=== PATIENT | male | born 1985 | race African-American/Black ===

== ENCOUNTER 2020-07-28 11:27 | Inpatient (IN) | payer OTHER ==
[~2020-07-28] VITALS: Ht 188 cm; Wt 124.8 kg
[2020-07-28] MEDS: CEFUROXIME 1.5 GM in SODIUM CHLORIDE 0.9% 50 ML IVPB SCH ×2 (04:30→16:30)
[2020-07-28] MEDS: VANCOMYCIN 1,700 MG in SODIUM CHLORIDE 0.9% 250 ML IVPB SCH ×2 (04:30→16:30)
[~2020-07-28 11:27] MED LIST: ALBUMIN HUMAN 5% 500 ML IV PRN; CEFUROXIME 1.5 GM in SODIUM CHLORIDE 0.9% 50 ML IVPB PRN; DEXMEDETOMIDINE 200 MCG in SODIUM CHLORIDE 0.9% 48 ML IV PRN; EPINEPHRINE 5 MG in SODIUM CHLORIDE 0.9% 245 ML IV PRN; MANNITOL PMX 20% 500 ML IVPB PRN; PHENYLEPHRINE 50 MG in SODIUM CHLORIDE 0.9% 245 ML IV PRN; POTASSIUM CHLORIDE 80 MEQ, SODIUM BICARBONATE 8.4% 10 MEQ, MAGNESIUM SULFATE 0.5 GM, LI... IV PRN; REGULAR INSULIN 100 UNITS in SODIUM CHLORIDE 0.9% 99 ML IV PRN; VANCOMYCIN 1,700 MG in SODIUM CHLORIDE 0.9% 250 ML IV PRN
--- NOTE | 2020-07-28 11:31 | NUR ---
PT CAREFLIGHT FROM [facility] FOR 5/10 NON-RADIATING DULL CHEST PAIN IN STERUM. PT GIVEN 324 OF ASPRIN AND X3 TABS NITRO. PT REPORTED MILD REFLIEF FROM NITRO. NO SIGNIFICANT MEDICAL HX. PT ATTACHED TO ALL MONITORS. VSS. NADN. APPEARS NORMAL SINUS ON MONITOR.
--- NOTE | 2020-07-28 11:53 | NUR ---
DR. MAC TO BEDSIDE FOR EVALUATION.
[2020-07-28] MEDS ORDERED: ONDANSETRON 2MG/ML, 2ML IVPush ONE (12:00)
[2020-07-28] MEDS ORDERED: SODIUM CHLORIDE FLUSH 10ML SYR IVF ONE (12:00)
[2020-07-28] MEDS ORDERED: ONDANSETRON 2MG/ML, 2ML ONE (12:04)
[2020-07-28] MEDS ORDERED: MORPHINE SULFATE 4 MG/ML, 1ML ONE ×2 (12:05→14:57)
[2020-07-28] MEDS: MORPHINE SULFATE 4 MG/ML, 1ML IVPush PRN ×2 (12:10→14:59)
[2020-07-28 12:24] LABS: BASOPHILS % (AUTO) 0 % (0-1); EOSINOPHILS % (AUTO) 0 % (1-7); LYMPHOCYTES % (AUTO) 10 % (22-44); MEAN CORPUSCULAR HEMOGLOBIN 28.6 pg (27.5-34.5); MEAN CORPUSCULAR HGB CONC 32.7 g/dL (33.2-36.2); MEAN PLATELET VOLUME 8.7 fL (7.4-10.4); MONOCYTES % (AUTO) 4 % (2-9); NEUTROPHILS % (AUTO) 85 % (42-75); PLATELET COUNT 174 x10^3/uL (130-400); RED BLOOD COUNT 4.93 x10^6/uL (4.38-5.82); RED CELL DISTRIBUTION WIDTH 14.5 % (9.4-14.8)
[2020-07-28] MEDS ORDERED: PLEASE ENTER ALLERGIES MC SCH (12:30)
[2020-07-28 12:35] LABS: ALANINE AMINOTRANSFERASE 29 U/L (12-78); ALBUMIN 4.3 g/dL (3.4-5.0); ANION GAP 3 mmol/L (5-15); CALCIUM 9.4 mg/dL (8.5-10.1); CHLORIDE 109 mmol/L (98-107)
[2020-07-28 12:40] LABS: ALKALINE PHOSPHATASE 63 U/L (45-117); BILIRUBIN,TOTAL 0.5 mg/dL (0.2-1.0); TOTAL PROTEIN 7.9 g/dL (6.4-8.2); TROPONIN I < 0.015 ng/mL (0.000-0.045)
[2020-07-28 12:41] LABS: MD SCAN
--- NOTE | 2020-07-28 13:04 | NUR ---
pt sitting up in bed. vss, nadn. guards at bedside.
[2020-07-28] MEDS ORDERED: SODIUM CHLORIDE 0.9%, 500ML IVBOLUS ONE ×2 (13:30→14:30)
--- NOTE | 2020-07-28 13:31 | NUR ---
PT TO CT FOR CTA.
--- NOTE | 2020-07-28 14:01 | NUR ---
PT UP TO BATHROOM WITH STEADY GAIT AND WITH GUARD.
[2020-07-28] MEDS ORDERED: OMNIPAQUE 350 MG/ML, 100ML BOTTLE ONE (14:20)
--- NOTE | 2020-07-28 14:23 | NUR ---
Lunch RN: MD Stevens back to bedside to update pt on POC. Pt back to CT. Meds ordered from pharmacy.
--- NOTE | 2020-07-28 14:52 | NUR ---
PT MOVED TO TRAUMA 3 FOR CLOSER OBSERVATION. PREVIOUS RN SENT FOR MEDS FROM PHARMACY, AWAITING ARRIVAL OF THESE MEDS. NAD NOTED AT THIS TIME.
--- NOTE | 2020-07-28 14:54 | NUR ---
report given to trauma rn Salena. pt transfered to trauma 3.
--- NOTE | 2020-07-28 15:03 | NUR ---
FOLLOW UP CALL MADE TO PHARMACY FOR MEDS.
[2020-07-28] MEDS: ESMOLOL/NS PMX 250 ML IV PRN ×2 (15:25→22:24)
--- NOTE | 2020-07-28 15:26 | NUR ---
COVID SWAB COMPLETED. PT REPORTS HAVING COVID 19 IN MAY. NO CURRENT SYMPTOMS. ESMOLOL STARTED WITH CCU RN ASSISTANCE.
[2020-07-28] MEDS ORDERED: MIDAZOLAM 10MG/2 ML ONE (15:54)
[2020-07-28] MEDS ORDERED: FENTANYL PF 250 MCG/5ML ONE ×5 (15:54→21:03)
--- NOTE | 2020-07-28 16:20 | NUR ---
PT SITTING UP IN BED, REPORTS FEELING SLIGHTLY BETTER, NO CHANGE IN CP LOCATION OR RADIATION. NO WOB NOTED. SIDE RAILS UP, CALL LIGHT IN REACH. TITRATION OF MEDICATIONS UNDERWAY.
--- NOTE | 2020-07-28 16:35 | NUR ---
OR TEAM AT BEDSIDE FOR REPORT. ANESTHESIOLOGIST AT BEDSIDE FOR DISCUSSION WITH PT.
--- NOTE | 2020-07-28 16:38 | NUR ---
PT TRANSPORTED WITH IVF STILL INFUSING.
[2020-07-28 16:40] LABS: BASOPHILS % (AUTO) 0 % (0-1); EOSINOPHILS % (AUTO) 0 % (1-7); LYMPHOCYTES % (AUTO) 12 % (22-44); MEAN CORPUSCULAR HEMOGLOBIN 28.2 pg (27.5-34.5); MEAN CORPUSCULAR HGB CONC 31.9 g/dL (33.2-36.2); MEAN PLATELET VOLUME 8.7 fL (7.4-10.4); MONOCYTES % (AUTO) 7 % (2-9); NEUTROPHILS % (AUTO) 80 % (42-75); PLATELET COUNT 166 x10^3/uL (130-400); RED BLOOD COUNT 4.69 x10^6/uL (4.38-5.82); RED CELL DISTRIBUTION WIDTH 14.4 % (9.4-14.8)
[2020-07-28 16:46] LABS: MD NO
[2020-07-28 16:52] LABS: ALBUMIN 3.5 g/dL (3.4-5.0); ANION GAP 6 mmol/L (5-15); CALCIUM 8.9 mg/dL (8.5-10.1); CHLORIDE 111 mmol/L (98-107)
[2020-07-28 16:55] LABS: ALANINE AMINOTRANSFERASE 25 U/L (12-78); ALKALINE PHOSPHATASE 55 U/L (45-117); BILIRUBIN,TOTAL 0.5 mg/dL (0.2-1.0); CREATININE 1.41 mg/dL (0.7-1.3); TOTAL PROTEIN 6.6 g/dL (6.4-8.2)
[2020-07-28] MEDS ORDERED: PROMETHAZINE 25 MG SUPP PR PRN (17:00)
[2020-07-28] MEDS ORDERED: SODIUM BICARB 8.4%, 50ML SYRINGE IV PRN (17:00)
[2020-07-28] MEDS ORDERED: ALBUMIN HUMAN 5% 500 ML IV PRN (17:00)
[2020-07-28] MEDS ORDERED: DOBUTAMINE 250 MG in SODIUM CHLORIDE 0.9% 230 ML IV PRN (17:00)
[2020-07-28] MEDS ORDERED: INSULIN REGULAR 100 UNITS/ML, 3ML VIAL IVPush PRN (17:00)
[2020-07-28] MEDS ORDERED: DEXTROSE 50%, 50ML SYRINGE IVPush PRN (17:00)
[2020-07-28] MEDS ORDERED: VASOPRESSIN 20 UNIT in SODIUM CHLORIDE 0.9% 99 ML IV PRN (17:00)
[2020-07-28] MEDS ORDERED: LACTATED RINGERS 500 ML IV PRN (17:00)
[2020-07-28] MEDS ORDERED: GLUCAGON 1 MG IM PRN (17:00)
[2020-07-28] MEDS ORDERED: REGULAR INSULIN 100 UNITS in SODIUM CHLORIDE 0.9% 99 ML IV PRN (17:00)
[2020-07-28] MEDS ORDERED: OXYcodone IR 5MG TABLET PO PRN (17:00)
[2020-07-28] MEDS ORDERED: DEXMEDETOMIDINE 400 MCG in SODIUM CHLORIDE 0.9% 96 ML IV PRN (17:00)
[2020-07-28] MEDS ORDERED: HYDROmorphone 1 MG/ML, 1ML INJ IV PRN (17:00)
[2020-07-28] MEDS ORDERED: MIDAZOLAM 1 MG/ML, 2ML IV PRN (17:00)
[2020-07-28] MEDS ORDERED: PHENYLEPHRINE 50 MG in SODIUM CHLORIDE 0.9% 245 ML IV PRN (17:00)
[2020-07-28] MEDS: INSULIN LISPRO 100 UNITS/ML, PEN SQ-INSULIN SCH ×2 (17:00→22:30)
[2020-07-28] MEDS ORDERED: CALCIUM CHLORIDE 13.6 MEQ in SODIUM CHLORIDE 0.9% 100 ML IVPB PRN (17:00)
[2020-07-28] MEDS ORDERED: DEXTROSE 4 GM TAB.CHEW PO PRN (17:00)
[2020-07-28] MEDS ORDERED: PROCHLORPERAZINE 5 MG/ML, 2ML IVPush PRN (17:00)
[2020-07-28] MEDS ORDERED: SODIUM CHLORIDE 0.9% 1,000 ML IV SCH (17:00)
[2020-07-28] MEDS ORDERED: EPINEPHRINE 5 MG in SODIUM CHLORIDE 0.9% 245 ML IV PRN (17:00)
[2020-07-28] MEDS ORDERED: NITROGLYCERIN/D5W PMX 250 ML IV PRN (17:00)
[2020-07-28] MEDS: ACETAMINOPHEN 500 MG TABLET PO SCH ×2 (17:00→23:00)
[2020-07-28] MEDS ORDERED: FENTANYL PF 100 MCG/2ML IV PRN (17:00)
[2020-07-28] MEDS ORDERED: ONDANSETRON 2MG/ML, 2ML IVPush PRN (17:00)
[2020-07-28 17:01] LABS: INTERNATIONAL NORMALIZED RATIO 1.06 (0.93-1.1); PROTHROMBIN TIME 11.3 Seconds (9.6-11.5)
[2020-07-28] MEDS ORDERED: ROCURONIUM 10MG/ML,5ML ONE ×4 (18:03→18:27)
[2020-07-28] MEDS ORDERED: PROPOFOL 10 MG/ML, 20ML ONE (18:21)
[2020-07-28] MEDS ORDERED: LIDOCAINE-MPF 2% ,5ML ONE (18:21)
[2020-07-28] MEDS ORDERED: PROTAMINE SULFATE 10 MG/ML, 25ML ONE ×2 (18:21)
[2020-07-28] MEDS ORDERED: AMINOCAPROIC ACID 250 MG/ML, 20ML ONE ×2 (18:21)
[2020-07-28] MEDS ORDERED: CALCIUM CHLORIDE 10%, 10ML SYR ONE ×2 (20:46→20:57)
[2020-07-28] MEDS ORDERED: SODIUM BICARB 8.4%, 50ML SYRINGE ONE ×2 (20:58→21:37)
[2020-07-28] MEDS ORDERED: DIPHENHYDRAMINE 25 MG CAPSULE PO PRN (21:00)
[2020-07-28] MEDS: SENNA/DOCUSATE TABLET PO SCH (21:00)
[2020-07-28] MEDS: DOCUSATE 100 MG CAPSULE PO SCH (21:00)
[2020-07-28] MEDS ORDERED: HEPARIN 1,000 UNITS/ML, 30ML ONE (21:38)
[2020-07-28] MEDS ORDERED: SODIUM BICARBONATE 1 MEQ/ML, 50ML VIAL ONE (21:38)
[2020-07-28] MEDS ORDERED: LIDOCAINE 2%, 20ML ONE (21:38)
[2020-07-28] MEDS ORDERED: methylPREDNISolone SOD SUCC 125 MG/2 ML ONE (21:38)
[2020-07-28] MEDS ORDERED: ALBUMIN HUMAN 25% 50 ML ONE (21:38)
[2020-07-28 21:52] LABS: GLUCOSE BY BLOOD GAS ANALYZER 182 mg/dL (70-110); HEMOGLOBIN BY BLOOD GAS ANALYZ 10.2 g/dL (14.0-18.0); POTASSIUM BY BLOOD GAS ANALYZR 3.5 mmol/L (3.6-5.5)
[2020-07-28] MEDS: KSCALE TO 4.5 IV SCH (22:30)
[2020-07-28] MEDS ORDERED: POTASSIUM CHLORIDE PMX 100 ML IV ONE (22:30)
[2020-07-28 22:35] LABS: INTERNATIONAL NORMALIZED RATIO 1.3 (0.93-1.1); PROTHROMBIN TIME 13.8 Seconds (9.6-11.5)
[2020-07-28] MEDS: MAGNESIUM SULFATE 1 GM in SODIUM CHLORIDE 0.9% 100 ML IVPB SCH (22:42)
[2020-07-28] MEDS: SODIUM CHLORIDE FLUSH 10ML SYR IVF SCH (22:48)
[2020-07-28] MEDS: MUPIROCIN OINT 2%, 22GM NAS SCH (23:19)
[2020-07-29 00:36] LABS: MICROSCOPIC AUTO
[2020-07-29] MEDS: ACETAMINOPHEN 500 MG TABLET PO SCH ×4 (04:06→22:36)
[2020-07-29] MEDS: CEFUROXIME 1.5 GM in SODIUM CHLORIDE 0.9% 50 ML IVPB SCH ×2 (04:29→17:31)
[2020-07-29] MEDS: INSULIN LISPRO 100 UNITS/ML, PEN SQ-INSULIN SCH ×5 (04:29→20:26)
[2020-07-29] MEDS: KSCALE TO 4.5 IV SCH ×2 (04:30→10:30)
[2020-07-29 04:35] LABS: BASOPHILS % (AUTO) 0 % (0-1); EOSINOPHILS % (AUTO) 0 % (1-7); LYMPHOCYTES % (AUTO) 4 % (22-44); MEAN CORPUSCULAR HEMOGLOBIN 28.6 pg (27.5-34.5); MEAN CORPUSCULAR HGB CONC 33.1 g/dL (33.2-36.2); MEAN PLATELET VOLUME 8.3 fL (7.4-10.4); MONOCYTES % (AUTO) 7 % (2-9); NEUTROPHILS % (AUTO) 89 % (42-75); PLATELET COUNT 130 x10^3/uL (130-400); RED BLOOD COUNT 3.68 x10^6/uL (4.38-5.82); RED CELL DISTRIBUTION WIDTH 14.2 % (9.4-14.8)
[2020-07-29 04:36] LABS: MD NO
[2020-07-29 04:39] LABS: ANION GAP 6 mmol/L (5-15); CALCIUM 8.6 mg/dL (8.5-10.1); CHLORIDE 113 mmol/L (98-107); CREATININE 1.53 mg/dL (0.7-1.3)
[2020-07-29] MEDS: VANCOMYCIN 1,700 MG in SODIUM CHLORIDE 0.9% 250 ML IVPB SCH ×2 (04:44→18:27)
[2020-07-29] MEDS: OXYcodone IR 5MG TABLET PO PRN ×4 (05:27→20:26)
[2020-07-29] MEDS ORDERED: CEFUROXIME 1.5 GM in SODIUM CHLORIDE 0.9% 50 ML IVPB ONE (07:30)
[2020-07-29] MEDS ORDERED: VANCOMYCIN 0 MG in SODIUM CHLORIDE 0.9% 250 ML IVPB ONE (07:30)
[2020-07-29] MEDS: POLYETHYLENE GLYCOL 17 GM PACKET PO SCH (08:18)
[2020-07-29] MEDS: DOCUSATE 100 MG CAPSULE PO SCH ×2 (08:18→20:26)
[2020-07-29] MEDS: CHLORHEXIDINE 15 ML UDC MM SCH ×2 (08:18→20:24)
[2020-07-29] MEDS: OMEPRAZOLE 20 MG CAPSULE.DR PO SCH (08:19)
[2020-07-29] MEDS: SENNA/DOCUSATE TABLET PO SCH ×2 (08:19→20:26)
[2020-07-29] MEDS: FUROSEMIDE 40 MG/4 ML IV SCH (08:19)
[2020-07-29] MEDS: ASPIRIN 81 MG TABLET EC PO SCH (08:19)
[2020-07-29] MEDS: SODIUM CHLORIDE FLUSH 10ML SYR IVF SCH ×2 (08:19→20:25)
[2020-07-29] MEDS: METOPROLOL TARTRATE 25 MG TAB PO SCH ×2 (08:26→17:05)
[2020-07-29] MEDS: MUPIROCIN OINT 2%, 22GM NAS SCH ×2 (08:27→20:24)
[2020-07-29] MEDS: AMLODIPINE 5 MG TABLET PO SCH (13:03)
[2020-07-29 14:27] VITALS: BP 129/88
[2020-07-29 16:50] VITALS: BP 124/67
[2020-07-29 17:33] VITALS: BP 139/82
[2020-07-29 20:17] VITALS: BP 127/70
[2020-07-29] MEDS ORDERED: MAGNESIUM SULFATE/D5W 100 ML ONE (22:34)
[2020-07-29] MEDS: MAGNESIUM SULFATE 1 GM in SODIUM CHLORIDE 0.9% 100 ML IVPB SCH (23:03)
[2020-07-30 03:17] VITALS: BP 135/78
[2020-07-30 03:37] LABS: BASOPHILS % (AUTO) 0 % (0-1); EOSINOPHILS % (AUTO) 0 % (1-7); LYMPHOCYTES % (AUTO) 12 % (22-44); MEAN CORPUSCULAR HEMOGLOBIN 28.7 pg (27.5-34.5); MEAN CORPUSCULAR HGB CONC 33.1 g/dL (33.2-36.2); MEAN PLATELET VOLUME 8.5 fL (7.4-10.4); MONOCYTES % (AUTO) 10 % (2-9); NEUTROPHILS % (AUTO) 78 % (42-75); PLATELET COUNT 122 x10^3/uL (130-400); RED BLOOD COUNT 3.68 x10^6/uL (4.38-5.82); RED CELL DISTRIBUTION WIDTH 14.4 % (9.4-14.8)
[2020-07-30 03:38] LABS: MD NO
[2020-07-30 03:40] LABS: ANION GAP 3 mmol/L (5-15); CALCIUM 8.4 mg/dL (8.5-10.1); CHLORIDE 106 mmol/L (98-107); CREATININE 1.28 mg/dL (0.7-1.3)
[2020-07-30] MEDS: ACETAMINOPHEN 500 MG TABLET PO SCH ×4 (04:44→22:31)
[2020-07-30] MEDS: METOPROLOL TARTRATE 25 MG TAB PO SCH ×2 (06:12→17:57)
[2020-07-30 06:46] VITALS: BP 138/89
[2020-07-30] MEDS: INSULIN LISPRO 100 UNITS/ML, PEN SQ-INSULIN SCH ×4 (07:00→21:00)
[2020-07-30] MEDS: SODIUM CHLORIDE FLUSH 10ML SYR IVF SCH ×2 (09:00→21:49)
[2020-07-30 09:20] VITALS: BP 159/89
[2020-07-30] MEDS: CHLORHEXIDINE 15 ML UDC MM SCH ×2 (09:20→21:48)
[2020-07-30] MEDS: FUROSEMIDE 40 MG/4 ML IV SCH ×2 (09:21→21:49)
[2020-07-30] MEDS: MUPIROCIN OINT 2%, 22GM NAS SCH ×2 (09:21→21:49)
[2020-07-30] MEDS: SENNA/DOCUSATE TABLET PO SCH ×2 (09:21→21:48)
[2020-07-30] MEDS: OMEPRAZOLE 20 MG CAPSULE.DR PO SCH (09:22)
[2020-07-30] MEDS: DOCUSATE 100 MG CAPSULE PO SCH ×2 (09:22→21:49)
[2020-07-30] MEDS: AMLODIPINE 5 MG TABLET PO SCH (09:22)
[2020-07-30] MEDS: ASPIRIN 81 MG TABLET EC PO SCH (09:22)
[2020-07-30] MEDS: POLYETHYLENE GLYCOL 17 GM PACKET PO SCH (09:22)
[2020-07-30 13:13] VITALS: BP 126/84
[2020-07-30] MEDS ORDERED: BISACODYL 10 MG SUPP PR PRN (17:00)
[2020-07-30] MEDS ORDERED: METOPROLOL TARTRATE 25 MG TAB PO SCH (18:00)
[2020-07-30 19:05] VITALS: BP 144/82
[2020-07-30] MEDS: MAGNESIUM SULFATE 1 GM in SODIUM CHLORIDE 0.9% 100 ML IVPB SCH (23:10)
[2020-07-31 01:12] VITALS: BP 133/78
[2020-07-31] MEDS: ACETAMINOPHEN 500 MG TABLET PO SCH ×4 (03:40→21:05)
[2020-07-31 03:44] LABS: BASOPHILS % (AUTO) 1 % (0-1); EOSINOPHILS % (AUTO) 0 % (1-7); LYMPHOCYTES % (AUTO) 9 % (22-44); MEAN CORPUSCULAR HEMOGLOBIN 28.1 pg (27.5-34.5); MEAN CORPUSCULAR HGB CONC 32.9 g/dL (33.2-36.2); MEAN PLATELET VOLUME 8.7 fL (7.4-10.4); MONOCYTES % (AUTO) 10 % (2-9); NEUTROPHILS % (AUTO) 80 % (42-75); PLATELET COUNT 115 x10^3/uL (130-400); RED BLOOD COUNT 3.93 x10^6/uL (4.38-5.82); RED CELL DISTRIBUTION WIDTH 14.5 % (9.4-14.8)
[2020-07-31 03:46] LABS: MD NO
[2020-07-31 03:51] LABS: ANION GAP 4 mmol/L (5-15); CALCIUM 8.6 mg/dL (8.5-10.1); CHLORIDE 104 mmol/L (98-107); CREATININE 1.37 mg/dL (0.7-1.3)
[2020-07-31] MEDS: METOPROLOL TARTRATE 25 MG TAB PO SCH ×2 (05:56→17:39)
[2020-07-31] MEDS: INSULIN LISPRO 100 UNITS/ML, PEN SQ-INSULIN SCH (07:00)
[2020-07-31 07:23] VITALS: BP 155/109
[2020-07-31] MEDS: AMLODIPINE 5 MG TABLET PO SCH (08:30)
[2020-07-31] MEDS: OMEPRAZOLE 20 MG CAPSULE.DR PO SCH (08:31)
[2020-07-31] MEDS: POLYETHYLENE GLYCOL 17 GM PACKET PO SCH (08:31)
[2020-07-31] MEDS: FUROSEMIDE 40 MG/4 ML IV SCH ×2 (08:31→21:06)
[2020-07-31] MEDS: DOCUSATE 100 MG CAPSULE PO SCH ×2 (08:31→21:04)
[2020-07-31] MEDS: ASPIRIN 81 MG TABLET EC PO SCH (08:31)
[2020-07-31] MEDS: SENNA/DOCUSATE TABLET PO SCH ×2 (08:31→21:04)
[2020-07-31] MEDS: MUPIROCIN OINT 2%, 22GM NAS SCH ×2 (08:32→21:00)
[2020-07-31] MEDS: SODIUM CHLORIDE FLUSH 10ML SYR IVF SCH ×2 (08:33→21:00)
[2020-07-31] MEDS: SPIRONOLACTONE 50 MG TABLET PO SCH ×2 (11:36→21:04)
[2020-07-31 15:13] VITALS: BP 142/96
[2020-07-31 20:06] VITALS: BP 145/86
[2020-07-31 21:07] VITALS: BP 128/78
[2020-08-01 00:57] VITALS: BP 137/84
[2020-08-01 05:00] LABS: BASOPHILS % (AUTO) 1 % (0-1); EOSINOPHILS % (AUTO) 0 % (1-7); LYMPHOCYTES % (AUTO) 11 % (22-44); MEAN CORPUSCULAR HEMOGLOBIN 28.5 pg (27.5-34.5); MEAN CORPUSCULAR HGB CONC 33.5 g/dL (33.2-36.2); MONOCYTES % (AUTO) 11 % (2-9); NEUTROPHILS % (AUTO) 78 % (42-75); PLATELET COUNT 146 x10^3/uL (130-400); RED BLOOD COUNT 4.07 x10^6/uL (4.38-5.82)
[2020-08-01 05:06] LABS: ANION GAP 5 mmol/L (5-15); CALCIUM 8.9 mg/dL (8.5-10.1); CHLORIDE 103 mmol/L (98-107); CREATININE 1.28 mg/dL (0.7-1.3)
[2020-08-01] MEDS: METOPROLOL TARTRATE 25 MG TAB PO SCH ×2 (05:10→17:26)
[2020-08-01] MEDS: ACETAMINOPHEN 500 MG TABLET PO SCH ×4 (05:10→21:14)
[2020-08-01 05:28] LABS: MD NO
[2020-08-01] MEDS: OMEPRAZOLE 20 MG CAPSULE.DR PO SCH (06:32)
[2020-08-01 08:05] VITALS: BP 125/71
[2020-08-01] MEDS: METOLAZONE 2.5 MG TABLET PO SCH (08:08)
[2020-08-01] MEDS: FUROSEMIDE 40 MG/4 ML IV SCH ×2 (08:08→08:09)
[2020-08-01] MEDS: SODIUM CHLORIDE FLUSH 10ML SYR IVF SCH ×2 (08:09→21:15)
[2020-08-01] MEDS: SENNA/DOCUSATE TABLET PO SCH ×2 (09:00→21:00)
[2020-08-01] MEDS: POLYETHYLENE GLYCOL 17 GM PACKET PO SCH (09:00)
[2020-08-01] MEDS: MUPIROCIN OINT 2%, 22GM NAS SCH ×2 (09:00→21:00)
[2020-08-01] MEDS: AMLODIPINE 5 MG TABLET PO SCH (09:58)
[2020-08-01] MEDS: ASPIRIN 81 MG TABLET EC PO SCH (09:58)
[2020-08-01] MEDS: LOSARTAN 25MG TABLET PO SCH (09:58)
[2020-08-01] MEDS: DOCUSATE 100 MG CAPSULE PO SCH ×2 (09:58→21:00)
[2020-08-01] MEDS: SPIRONOLACTONE 50 MG TABLET PO SCH ×2 (09:59→21:14)
[2020-08-01 15:30] VITALS: BP 128/77
[2020-08-01 21:04] VITALS: BP 115/70
[2020-08-02] VITALS (7 sets, daily range): BP systolic 103–125; BP diastolic 58–84
[2020-08-02] MEDS: MUPIROCIN OINT 2%, 22GM NAS SCH ×2 (00:43→00:47)
[2020-08-02] MEDS: ACETAMINOPHEN 500 MG TABLET PO SCH ×2 (04:39→11:19)
[2020-08-02] MEDS: METOPROLOL TARTRATE 25 MG TAB PO SCH ×2 (04:40→18:15)
[2020-08-02 05:17] LABS: BASOPHILS % (AUTO) 1 % (0-1); CHLORIDE 97 mmol/L (98-107); EOSINOPHILS % (AUTO) 1 % (1-7); LYMPHOCYTES % (AUTO) 13 % (22-44); MEAN CORPUSCULAR HEMOGLOBIN 28.9 pg (27.5-34.5); MEAN CORPUSCULAR HGB CONC 33.9 g/dL (33.2-36.2); MEAN PLATELET VOLUME 8.8 fL (7.4-10.4); MONOCYTES % (AUTO) 13 % (2-9); NEUTROPHILS % (AUTO) 73 % (42-75); PLATELET COUNT 214 x10^3/uL (130-400); RED BLOOD COUNT 4.11 x10^6/uL (4.38-5.82)
[2020-08-02 05:18] LABS: MD NO
[2020-08-02 05:27] LABS: ANION GAP 10 mmol/L (5-15); CALCIUM 8.9 mg/dL (8.5-10.1); CREATININE 1.43 mg/dL (0.7-1.3)
[2020-08-02] MEDS: OMEPRAZOLE 20 MG CAPSULE.DR PO SCH (09:29)
[2020-08-02] MEDS: ASPIRIN 81 MG TABLET EC PO SCH (09:29)
[2020-08-02] MEDS: SENNA/DOCUSATE TABLET PO SCH ×2 (09:29→21:00)
[2020-08-02] MEDS: DOCUSATE 100 MG CAPSULE PO SCH ×2 (09:29→21:00)
[2020-08-02] MEDS: LOSARTAN 25MG TABLET PO SCH (09:29)
[2020-08-02] MEDS: POLYETHYLENE GLYCOL 17 GM PACKET PO SCH (09:31)
[2020-08-02] MEDS: METOLAZONE 2.5 MG TABLET PO SCH (09:31)
[2020-08-02] MEDS: SPIRONOLACTONE 50 MG TABLET PO SCH ×2 (09:33→21:17)
[2020-08-02] MEDS ORDERED: POTASSIUM CHLORIDE 20 MEQ TAB.ER.PRT PO ONE (10:00)
[2020-08-02] MEDS: FUROSEMIDE 40 MG/4 ML IV SCH (11:18)
[2020-08-02] MEDS: SODIUM CHLORIDE FLUSH 10ML SYR IVF SCH ×2 (11:18→21:00)
[2020-08-02] MEDS: AMLODIPINE 5 MG TABLET PO SCH (11:19)
[2020-08-02] MEDS ORDERED: OMNIPAQUE 350 MG/ML, 100ML BOTTLE ONE (14:48)
[2020-08-03] VITALS (9 sets, daily range): BP systolic 111–124; BP diastolic 72–91
[2020-08-03] MEDS: OXYcodone IR 5MG TABLET PO PRN ×4 (01:22→20:10)
[2020-08-03] MEDS: METOPROLOL TARTRATE 25 MG TAB PO SCH ×2 (05:23→17:13)
[2020-08-03 06:41] LABS: BASOPHILS % (AUTO) 1 % (0-1); EOSINOPHILS % (AUTO) 0 % (1-7); LYMPHOCYTES % (AUTO) 15 % (22-44); MEAN CORPUSCULAR HEMOGLOBIN 28.6 pg (27.5-34.5); MEAN CORPUSCULAR HGB CONC 33.2 g/dL (33.2-36.2); MEAN PLATELET VOLUME 8.2 fL (7.4-10.4); MONOCYTES % (AUTO) 14 % (2-9); NEUTROPHILS % (AUTO) 69 % (42-75); PLATELET COUNT 268 x10^3/uL (130-400); RED CELL DISTRIBUTION WIDTH 14.3 % (9.4-14.8)
[2020-08-03 06:52] LABS: ANION GAP 6 mmol/L (5-15); CALCIUM 9.1 mg/dL (8.5-10.1); CHLORIDE 97 mmol/L (98-107); CREATININE 1.38 mg/dL (0.7-1.3)
[2020-08-03 07:20] LABS: MD SCAN
[2020-08-03] MEDS: OMEPRAZOLE 20 MG CAPSULE.DR PO SCH (07:54)
[2020-08-03] MEDS: AMLODIPINE 5 MG TABLET PO SCH (07:54)
[2020-08-03] MEDS: METOLAZONE 2.5 MG TABLET PO SCH (07:55)
[2020-08-03] MEDS: SODIUM CHLORIDE FLUSH 10ML SYR IVF SCH ×2 (07:55→20:11)
[2020-08-03] MEDS ORDERED: POTASSIUM CHLORIDE 20 MEQ TAB.ER.PRT PO ONE (09:30)
[2020-08-03] MEDS: ASPIRIN 81 MG TABLET EC PO SCH (09:30)
[2020-08-03] MEDS: SENNA/DOCUSATE TABLET PO SCH ×2 (09:30→20:11)
[2020-08-03] MEDS: FUROSEMIDE 40 MG/4 ML IV SCH (09:30)
[2020-08-03] MEDS: DOCUSATE 100 MG CAPSULE PO SCH ×2 (09:31→20:10)
[2020-08-03] MEDS: POLYETHYLENE GLYCOL 17 GM PACKET PO SCH (09:31)
[2020-08-03] MEDS: LOSARTAN 25MG TABLET PO SCH (09:31)
[2020-08-03] MEDS: SPIRONOLACTONE 50 MG TABLET PO SCH ×2 (09:31→20:10)
[2020-08-04] VITALS (7 sets, daily range): BP systolic 98–136; BP diastolic 65–92
[2020-08-04] MEDS: OXYcodone IR 5MG TABLET PO PRN ×2 (05:12→17:47)
[2020-08-04] MEDS: METOPROLOL TARTRATE 25 MG TAB PO SCH ×2 (05:12→17:44)
[2020-08-04 05:47] LABS: BASOPHILS % (AUTO) 1 % (0-1); EOSINOPHILS % (AUTO) 1 % (1-7); LYMPHOCYTES % (AUTO) 14 % (22-44); MEAN CORPUSCULAR HEMOGLOBIN 28.4 pg (27.5-34.5); MEAN CORPUSCULAR HGB CONC 33.3 g/dL (33.2-36.2); MEAN PLATELET VOLUME 8.1 fL (7.4-10.4); MONOCYTES % (AUTO) 15 % (2-9); NEUTROPHILS % (AUTO) 70 % (42-75); PLATELET COUNT 325 x10^3/uL (130-400); RED BLOOD COUNT 4.12 x10^6/uL (4.38-5.82); RED CELL DISTRIBUTION WIDTH 14.2 % (9.4-14.8)
[2020-08-04 05:51] LABS: ANION GAP 7 mmol/L (5-15); CALCIUM 9.2 mg/dL (8.5-10.1); CHLORIDE 92 mmol/L (98-107); CREATININE 1.54 mg/dL (0.7-1.3)
[2020-08-04 07:16] LABS: MD SCAN
[2020-08-04] MEDS: OMEPRAZOLE 20 MG CAPSULE.DR PO SCH (07:48)
[2020-08-04] MEDS: SODIUM CHLORIDE FLUSH 10ML SYR IVF SCH ×2 (09:00→20:49)
[2020-08-04] MEDS: SENNA/DOCUSATE TABLET PO SCH ×2 (09:21→20:49)
[2020-08-04] MEDS: POLYETHYLENE GLYCOL 17 GM PACKET PO SCH (09:21)
[2020-08-04] MEDS: FUROSEMIDE 40 MG TABLET PO SCH (09:21)
[2020-08-04] MEDS: AMLODIPINE 5 MG TABLET PO SCH (09:22)
[2020-08-04] MEDS: DOCUSATE 100 MG CAPSULE PO SCH ×2 (09:22→20:49)
[2020-08-04] MEDS: ASPIRIN 81 MG TABLET EC PO SCH (09:22)
[2020-08-04] MEDS: LOSARTAN 25MG TABLET PO SCH (11:04)
[2020-08-04] MEDS: SPIRONOLACTONE 50 MG TABLET PO SCH ×2 (11:04→20:49)
[2020-08-05 01:29] VITALS: BP 117/75
[2020-08-05] MEDS: OXYcodone IR 5MG TABLET PO PRN ×2 (01:53→22:39)
[2020-08-05 04:53] LABS: BASOPHILS % (AUTO) 1 % (0-1); EOSINOPHILS % (AUTO) 1 % (1-7); LYMPHOCYTES % (AUTO) 17 % (22-44); MEAN CORPUSCULAR HEMOGLOBIN 28.6 pg (27.5-34.5); MEAN CORPUSCULAR HGB CONC 33.2 g/dL (33.2-36.2); MEAN PLATELET VOLUME 7.5 fL (7.4-10.4); MONOCYTES % (AUTO) 13 % (2-9); NEUTROPHILS % (AUTO) 68 % (42-75); PLATELET COUNT 413 x10^3/uL (130-400); RED BLOOD COUNT 3.85 x10^6/uL (4.38-5.82); RED CELL DISTRIBUTION WIDTH 14.1 % (9.4-14.8)
[2020-08-05 05:02] LABS: ANION GAP 5 mmol/L (5-15); CALCIUM 8.8 mg/dL (8.5-10.1); CHLORIDE 94 mmol/L (98-107)
[2020-08-05 05:05] LABS: MD NO
[2020-08-05] MEDS: OMEPRAZOLE 20 MG CAPSULE.DR PO SCH (06:32)
[2020-08-05] MEDS: METOPROLOL TARTRATE 25 MG TAB PO SCH ×2 (06:32→18:04)
[2020-08-05 07:04] VITALS: BP 127/79
[2020-08-05] MEDS: LOSARTAN 25MG TABLET PO SCH (08:08)
[2020-08-05] MEDS: AMLODIPINE 5 MG TABLET PO SCH (08:08)
[2020-08-05] MEDS: POLYETHYLENE GLYCOL 17 GM PACKET PO SCH (08:08)
[2020-08-05] MEDS: ASPIRIN 81 MG TABLET EC PO SCH (08:09)
[2020-08-05] MEDS: DOCUSATE 100 MG CAPSULE PO SCH ×2 (08:09→21:00)
[2020-08-05] MEDS: FUROSEMIDE 40 MG TABLET PO SCH (08:09)
[2020-08-05] MEDS: SPIRONOLACTONE 50 MG TABLET PO SCH ×2 (08:09→22:38)
[2020-08-05] MEDS: SENNA/DOCUSATE TABLET PO SCH ×2 (08:09→21:00)
[2020-08-05] MEDS: SODIUM CHLORIDE FLUSH 10ML SYR IVF SCH ×2 (08:10→21:00)
[2020-08-05 13:58] VITALS: BP 97/62
[2020-08-05 18:45] VITALS: BP 98/60
[2020-08-05 22:40] VITALS: BP 115/65
[2020-08-06 01:24] VITALS: BP 108/64
[2020-08-06] MEDS: OXYcodone IR 5MG TABLET PO PRN (04:31)
[2020-08-06 06:12] LABS: BASOPHILS % (AUTO) 1 % (0-1); EOSINOPHILS % (AUTO) 1 % (1-7); LYMPHOCYTES % (AUTO) 15 % (22-44); MEAN CORPUSCULAR HEMOGLOBIN 28.9 pg (27.5-34.5); MEAN CORPUSCULAR HGB CONC 33.9 g/dL (33.2-36.2); MEAN PLATELET VOLUME 7.4 fL (7.4-10.4); MONOCYTES % (AUTO) 11 % (2-9); NEUTROPHILS % (AUTO) 73 % (42-75); PLATELET COUNT 519 x10^3/uL (130-400); RED BLOOD COUNT 3.89 x10^6/uL (4.38-5.82)
[2020-08-06 06:15] LABS: ANION GAP 7 mmol/L (5-15); CALCIUM 8.9 mg/dL (8.5-10.1); CHLORIDE 96 mmol/L (98-107); CREATININE 1.38 mg/dL (0.7-1.3)
[2020-08-06] MEDS: OMEPRAZOLE 20 MG CAPSULE.DR PO SCH (06:18)
[2020-08-06 06:19] LABS: MD NO
[2020-08-06] MEDS: METOPROLOL TARTRATE 25 MG TAB PO SCH (06:19)
[2020-08-06 07:24] VITALS: BP 107/70
[2020-08-06] MEDS ORDERED: POTA10TA5 PO (09:54)
[2020-08-06] MEDS ORDERED: ASPI81TA45 PO (09:54)
[2020-08-06] MEDS ORDERED: TRAM50TA2 PO (09:54)
[2020-08-06] MEDS ORDERED: METO50TA82 PO (09:54)
[2020-08-06] MEDS ORDERED: FURO20TA3 PO (09:54)
[2020-08-06] MEDS ORDERED: AMLO-150 PO (09:54)
[2020-08-06] MEDS ORDERED: LOSA25TA25 PO (09:54)
[2020-08-06] MEDS: LOSARTAN 25MG TABLET PO SCH (10:35)
[2020-08-06] MEDS: SODIUM CHLORIDE FLUSH 10ML SYR IVF SCH (10:35)
[2020-08-06] MEDS: FUROSEMIDE 40 MG TABLET PO SCH (10:35)
[2020-08-06] MEDS: ASPIRIN 81 MG TABLET EC PO SCH (10:35)
[2020-08-06] MEDS: SPIRONOLACTONE 50 MG TABLET PO SCH (10:35)
[2020-08-06] MEDS: AMLODIPINE 5 MG TABLET PO SCH (10:36)
[2020-08-06] MEDS: DOCUSATE 100 MG CAPSULE PO SCH (10:39)
[2020-08-06] MEDS: POLYETHYLENE GLYCOL 17 GM PACKET PO SCH (10:39)
[2020-08-06] MEDS: SENNA/DOCUSATE TABLET PO SCH (10:39)
[2020-08-06] MEDS ORDERED: SPIR50TA4 PO ×2 (11:46→11:51)
[2020-08-06] MEDS ORDERED: SPIR50TA PO (12:38)
[2020-08-06] MEDS ORDERED: SPIRONOLACTONE 50 MG TABLET PO SCH (21:00)
== END 2020-08-06 13:56 | DRG 221 ==
LOC: EDBD 11:27 → ED 12:51 → EDIP 17:42 → CCU 21:27 → 5SO 07-29 17:21
PROVIDERS: ADMIT Family Medicine; ATTEND Hospitalist
PROC: 02VW0DZ Restriction of Thoracic Aorta, Descending with Intraluminal Device, Open Approach (ICD-10-PCS; 2020-07-28)
PROC: 5A1221Z Performance of Cardiac Output, Continuous (ICD-10-PCS; 2020-07-28)
PROC: B24BZZ4 Ultrasonography of Heart with Aorta, Transesophageal (ICD-10-PCS; 2020-07-28)
PROC: 30233K1 Transfusion of Nonautologous Frozen Plasma into Peripheral Vein, Percutaneous Approach (ICD-10-PCS; 2020-07-28)
PROC: 30233M1 Transfusion of Nonautologous Plasma Cryoprecipitate into Peripheral Vein, Percutaneous Approach (ICD-10-PCS; 2020-07-28)
PROC: 02RX0JZ Replacement of Thoracic Aorta, Ascending/Arch with Synthetic Substitute, Open Approach (ICD-10-PCS; principal; 2020-07-28 19:45)
DX: I71.02 Dissection of abdominal aorta (principal); I12.9 Hypertensive chronic kidney disease with stage 1 through stage 4 chronic kidney disease, or unspecified chronic kidney disease; G47.00 Insomnia, unspecified; I71.2 Thoracic aortic aneurysm, without rupture; K59.00 Constipation, unspecified; N18.30 Chronic kidney disease, stage 3 unspecified; T50.2X5A Adverse effect of carbonic-anhydrase inhibitors, benzothiadiazides and other diuretics, initial encounter; Z87.891 Personal history of nicotine dependence; Y92.89 Other specified places as the place of occurrence of the external cause; Z79.899 Other long term (current) drug therapy
CPT/HCPCS: 36415; 36600; 96361; 96374; 96375; 99285; J3490; S0017; 71045; 71275; 74174; 80048; 80053; 81001; 82330; 82800; 82803; 82810; 82947; 82962; 83690; 83735; 84132; 84295; 84484; 85014; 85018; 85025; 85049; 85347; 85379; 85610; 85730; 86850; 86900; 86923; 87081; 87635; 88304; 88305; 88341; 88342; 93005; 93312; 93321; 93325; 94002; 94003; 94150; G0378; J0697; J1644; J1815; J1940; J2250; J2405; J2704; J2720; J3010; J3370; J3475; J3480; J7120; P9047; Q9967; C1751; C1760; C1768; C1781; J2270; J2930; J7040; J7050; P9035; Q0163